=== PATIENT | female | born 1950 | race Caucasian/White ===

== ENCOUNTER 2018-04-19 07:41 | Inpatient (IN) ==
--- NOTE | 2018-04-19 08:44 | ED ---
HPI General Chief complaint: Altered Mental Status Stated complaint: Anxiety Time Seen by Provider: 04/19/18 08:25 Source: patient Mode of arrival: ambulatory Limitations: no limitations History of Present Illness HPI narrative: 68-year-old female complains of knots all over her body. Patient states that she has feeling of wires running to her body and not all over the body and feeling unwinding on and off for the past 2 years. Patient has been seen by local physician and advised to take duloxetine which she stopped taking it. Patient was recently put on Prozac. Patient has history of hypertension and on lisinopril. Patient denies any recent injury. Patient complained of aching headache in the back of the head. Patient denies any visual change. Patient denies any neck pain. Patient denies any chest pain or shortness of breath. Patient denies abdominal pain. Patient denies any focal weakness or numbness of the extremity. Patient has history hypertension and hyperlipidemia. Patient smokes marijuana. Patient states that she had alcoholic drink yesterday afternoon. Patient denies any history of alcohol abuse. Patient states that she only drinks alcohol once in a while. Patient denies any other illicit drug abuse. Related Data Home Medications Medication Instructions Recorded Confirmed fluoxetine [Prozac] 20 mg PO DAILY 04/19/18 04/19/18 lisinopril 40 mg PO DAILY 04/20/18 04/20/18 lorazepam [Ativan] 0.5 mg PO TID 04/20/18 04/20/18 Allergies Allergy/AdvReac Type Severity Reaction Status Date / Time No Known Allergies Allergy Uncoded 05/12/16 17:40 Review of Systems ROS: all other systems reviewed are negative REPLACED BY [facility] Medical History Medical History HTN (hypertension) (Acute) History of hysterectomy (Acute) Surgical History Surgical History History of rhinoplasty (Acute) Social History Social History Substance History: No History of Abuse Smoking Status: Former smoker How Often Do You Have a Drink Containing Alcohol: 4 or more times a week Recent Travel in [facility] within the Last 8 Weeks: No Recent Out of Country Travel within the Last 8 Weeks: No Substance Abuse Detail Marijuana: Substance Use Status: Active Route Used Substance Abuse: Inhalation Immunization History Tetanus Immunization: Unsure Exam Narrative Exam Narrative: GENERAL: Well-nourished, well-developed patient. SKIN: Focused skin assessment warm/dry. HEAD: Normocephalic. EYES: No scleral icterus. No injection or drainage. NECK: Supple, trachea midline. No JVD or lymphadenopathy. CARDIOVASCULAR: Regular rate and rhythm without murmurs, gallops, or rubs. RESPIRATORY: Breath sounds equal bilaterally. No accessory muscle use. GASTROINTESTINAL: Abdomen soft, non-tender, nondistended. MUSCULOSKELETAL: No cyanosis, or edema. BACK: Nontender without obvious deformity. No CVA tenderness. Neurologic exam normal. Course Initial Documented Vital Signs Temperature 97.7 F 04/19/18 07:47 Pulse Rate 66 04/19/18 07:47 Respiratory Rate 12 04/19/18 07:47 Blood Pressure 231/105 H 04/19/18 07:47 Pulse Oximetry 99 04/19/18 07:47 Last Documented Vital Signs Temperature 99.0 F 04/19/18 20:19 Pulse Rate 104 H 04/20/18 08:55 Respiratory Rate 18 04/20/18 08:55 Blood Pressure 170/96 H 04/20/18 08:55 Pulse Oximetry 96 04/20/18 06:12 Medical Decision Making MDM Narrative Medical decision making narrative: 68-year-old female with complaints of nausea all over the body and feeling unwinding of the body. Patient had alcohol drinks yesterday afternoon. 9:34 AM. Patient is medically cleared for psychiatric evaluation. Patient will be [place] acted. Patient was given 2 mg IV Ativan and Haldol 5 mg IM. Medical Screen Exam Complete: Yes Emergency Medical Condition: Yes Lab Data Lab results reviewed: Yes I reviewed the patient's lab results. Result diagrams: 04/19/18 08:43 04/19/18 08:43 Lab Results 04/19/18 04/19/18 04/19/18 Range/Units 08:40 08:40 08:43 WBC 8.5 (4.0-11.0) th/mm3 RBC 4.70 (4.00-5.30) mil/mm3 Hgb 14.8 (11.6-15.3) gm/dL Hct 43.5 (35.0-46.0) % MCV 92.7 (80.0-100.0) fL MCH 31.4 (27.0-34.0) pg MCHC 33.9 (32.0-36.0) % RDW 13.1 (11.6-17.2) % Plt Count 255 (150-450) th/mm3 MPV 9.1 (7.0-11.0) fL Neut % (Auto) 76.8 H (16.0-70.0) % Lymph % (Auto) 15.0 (9.0-44.0) % Canadian % (Auto) 4.5 (0.0-8.0) % Eos % (Auto) 2.8 (0.0-4.0) % Baso % (Auto) 0.9 (0.0-2.0) % Neut # (Auto) 6.5 (1.8-7.7) th/mm3 Lymph # (Auto) 1.3 (1.0-4.8) th/mm3 Canadian # (Auto) 0.4 (0.0-0.9) th/mm3 Eos # (Auto) 0.2 (0.0-0.4) th/mm3 Baso # (Auto) 0.1 (0.0-0.2) th/mm3 WBC Differential . Differential Comment Auto diff final Sodium (136-145) meq/L Potassium (3.5-5.1) meq/L Chloride (98-107) meq/L Carbon Dioxide (21.0-32.0) meq/L Anion Gap (5-15) meq/L BUN (7-18) mg/dL Creatinine (0.50-1.00) mg/dL Estimated GFR (>89) mL/min Random Glucose (74-106) mg/dL Calcium (8.5-10.1) mg/dL Total Bilirubin (0.2-1.0) mg/dL AST (15-37) U/L ALT (10-53) U/L Alkaline Phosphatase (45-117) U/L Total Protein (6.4-8.2) g/dL Albumin (3.4-5.0) g/dL Lipase (73-393) U/L TSH (0.358-3.740) uIU/mL Urine Color Straw (Yellw/Straw) Urine Clarity Hazy H (Clear) Urine pH 8.0 (5.0-8.5) Ur Specific [place] 1.008 (1.002-1.035) Urine Protein Negative (Neg-Trace) mg/dL Urine Glucose (UA) Negative (Negative) mg/dL Urine Ketones Negative (Negative) mg/dL Urine Occult Blood Negative (Negative) Urine Nitrate Negative (Negative) Urine Bilirubin Negative (Negative) Urine Urobilinogen Less than 2 (Less than 2) mg/dL Ur Leukocyte Esterase Negative (Negative) Urine RBC Less than 1 (0-3) /hpf Urine WBC Less than 1 (0-5) /hpf Ur Squamous Epith Cells 1 (0-5) /hpf Micro UA Comment Culture not ind Ur Microscopic Review Not Reportable Urine Culture Comments Culture not ind Urine Opiates Screen Neg (Neg) Ur Barbiturates Screen Neg (Neg) Ur Amphetamines Screen Neg (Neg) U Benzodiazepines Scrn Neg (Neg) Urine Cocaine Screen Neg (Neg) U Cannabinoids Screen Pos H (Neg) Serum Alcohol (0-5) mg/dL 04/19/18 Range/Units 08:43 WBC (4.0-11.0) th/mm3 RBC (4.00-5.30) mil/mm3 Hgb (11.6-15.3) gm/dL Hct (35.0-46.0) % MCV (80.0-100.0) fL MCH (27.0-34.0) pg MCHC (32.0-36.0) % RDW (11.6-17.2) % Plt Count (150-450) th/mm3 MPV (7.0-11.0) fL Neut % (Auto) (16.0-70.0) % Lymph % (Auto) (9.0-44.0) % Canadian % (Auto) (0.0-8.0) % Eos % (Auto) (0.0-4.0) % Baso % (Auto) (0.0-2.0) % Neut # (Auto) (1.8-7.7) th/mm3 Lymph # (Auto) (1.0-4.8) th/mm3 Canadian # (Auto) (0.0-0.9) th/mm3 Eos # (Auto) (0.0-0.4) th/mm3 Baso # (Auto) (0.0-0.2) th/mm3 WBC Differential Differential Comment Sodium 140 (136-145) meq/L Potassium 3.5 (3.5-5.1) meq/L Chloride 104 (98-107) meq/L Carbon Dioxide 24.7 (21.0-32.0) meq/L Anion Gap 11 (5-15) meq/L BUN 8 (7-18) mg/dL Creatinine 0.72 (0.50-1.00) mg/dL Estimated GFR 81 L (>89) mL/min Random Glucose 86 (74-106) mg/dL Calcium 9.1 (8.5-10.1) mg/dL Total Bilirubin 0.5 (0.2-1.0) mg/dL AST 29 (15-37) U/L ALT 44 (10-53) U/L Alkaline Phosphatase 77 (45-117) U/L Total Protein 8.1 (6.4-8.2) g/dL Albumin 4.3 (3.4-5.0) g/dL Lipase 205 (73-393) U/L TSH 2.350 (0.358-3.740) uIU/mL Urine Color (Yellw/Straw) Urine Clarity (Clear) Urine pH (5.0-8.5) Ur Specific Chester (1.002-1.035) Urine Protein (Neg-Trace) mg/dL Urine Glucose (UA) (Negative) mg/dL Urine Ketones (Negative) mg/dL Urine Occult Blood (Negative) Urine Nitrate (Negative) Urine Bilirubin (Negative) Urine Urobilinogen (Less than 2) mg/dL Ur Leukocyte Esterase (Negative) Urine RBC (0-3) /hpf Urine WBC (0-5) /hpf Ur Squamous Epith Cells (0-5) /hpf Micro UA Comment Ur Microscopic Review Urine Culture Comments Urine Opiates Screen (Neg) Ur Barbiturates Screen (Neg) Ur Amphetamines Screen (Neg) U Benzodiazepines Scrn (Neg) Urine Cocaine Screen (Neg) U Cannabinoids Screen (Neg) Serum Alcohol 98 H (0-5) mg/dL Imaging Data Attestation: I personally reviewed and interpreted this imaging study as follows : Radiologist's impression: Chest X-Ray 04/19/18 08:37 CONCLUSION: No acute cardiopulmonary disease. Discharge Plan Discharge Disposition Patient Disposition: 65 Disc To [facility] Facility Discharge Condition Condition: Stable Discharge Order Discharge Orders: Discharge Order (Routine); Ordered 04/20/18 Ordered By: Joyce Dow Discharge Details Diagnosis: Acute psychosis Physicians Team ED Provider: Alfredo Reyes Primary Care Provider: UNKNOWN, Rxs /Orders / Referrals /Forms Prescriptions: No Action fluoxetine [Prozac] 10 mg Capsule 20 mg PO DAILY RF: 0 lorazepam [Ativan] 0.5 mg Tablet 0.5 mg PO TID RF: 0 lisinopril 40 mg Tablet 40 mg PO DAILY RF: 0 Discharge Instructions Print Language: French Additional Instructions: Follow-up per psychiatrist recommendations. Discharge Interventions Interventions: Vital Signs Last Done: 04/20/18 08:55 Status ED Status: Ready for Discharge
[2018-04-19 08:54] LABS: Baso # (Auto) 0.1 th/mm3 (0.0-0.2); Baso % (Auto) 0.9 % (0.0-2.0); Eos # (Auto) 0.2 th/mm3 (0.0-0.4); Eos % (Auto) 2.8 % (0.0-4.0); Hematocrit 43.5 % (35.0-46.0); Hemoglobin 14.8 gm/dL (11.6-15.3); Lymph # (Auto) 1.3 th/mm3 (1.0-4.8); Mean Corpuscular HGB Conc 33.9 % (32.0-36.0); Mean Corpuscular Hemoglobin 31.4 pg (27.0-34.0); Mean Corpuscular Volume 92.7 fL (80.0-100.0); Mean Platelet Volume 9.1 fL (7.0-11.0); Mono # (Auto) 0.4 th/mm3 (0.0-0.9); Mono % (Auto) 4.5 % (0.0-8.0); Neut # (Auto) 6.5 th/mm3 (1.8-7.7); Neut % (Auto) 76.8 % (16.0-70.0); Platelet Count 255 th/mm3 (150-450); Red Cell Distribution Width 13.1 % (11.6-17.2); White Blood Count 8.5 th/mm3 (4.0-11.0)
--- NOTE | 2018-04-19 08:55 | XR ---
EXAM DATE: 04/19/2018 8:37 AM EDT AGE/SEX: 68 years / Female INDICATIONS: Chest pain and shortness of breath. CLINICAL DATA: This is the patient's initial encounter. Patient reports that signs and symptoms have been present for 1 day and indicates a pain score of 7/10. MEDICAL/SURGICAL HISTORY: Hypertension. None. COMPARISON: [facility], CHEST PA & LAT, 01/02/2012. . FINDINGS: The lungs are clear without infiltrate, nodule, or mass. There is no appreciable pleural effusion fo r technique. Heart and mediastinum are unremarkable. CONCLUSION: No acute cardiopulmonary disease. Electronically signed by: Genesis Galvez MD 04/19/2018 8:54 AM EDT
[2018-04-19 09:03] LABS: Bilirubin,Urine Negative (Negative); Clarity,Urine Hazy (Clear); Color,Urine Straw (Yellw/Straw); Glucose,Urine (UA) Negative (Negative); Leukocyte Esterase,Urine Negative (Negative); Nitrite,Urine Negative (Negative); Specific Gravity,Urine 1.008 (1.002-1.035); Squamous Epithelial Cell,Urine 1 /hpf (0-5)
[2018-04-19 09:06] LABS: Amphetamine Screen,Urine Neg (Neg); Barbiturate Screen,Urine Neg (Neg); Cannabinoid Screen,Urine Pos (Neg); Cocaine Screen,Urine Neg (Neg); Opiate Screen,Urine Neg (Neg)
[2018-04-19 09:10] LABS: Alanine Aminotransferase 44 U/L (10-53); Albumin 4.3 g/dL (3.4-5.0); Anion Gap 11 meq/L (5-15); Aspartate Aminotransferase 29 U/L (15-37); Blood Urea Nitrogen 8 mg/dL (7-18); Calcium 9.1 mg/dL (8.5-10.1); Carbon Dioxide 24.7 meq/L (21.0-32.0); Chloride 104 meq/L (98-107); Glomerular Filtration Rate 81 mL/min (>89); Glucose,Random 86 mg/dL (74-106); Lipase 205 U/L (73-393); Potassium 3.5 meq/L (3.5-5.1); Sodium 140 meq/L (136-145)
[2018-04-19 09:11] LABS: Alcohol 98 mg/dL (0-5)
[2018-04-19 09:20] LABS: Alkaline Phosphatase 77 U/L (45-117); Total Protein 8.1 g/dL (6.4-8.2)
[2018-04-19] MEDS ORDERED: Haloperidol Inj 5 MG/ML Ampul IM ONE (11:45)
[2018-04-19] MEDS ORDERED: Ibuprofen 600 MG Tablet PO ONE (17:03)
[2018-04-20] MEDS ORDERED: Lisinopril 20 MG Tablet PO ONE (10:44)
[2018-04-20] MEDS ORDERED: LORazepam 0.5 MG Tablet PO ONE (12:11)
--- NOTE | 2018-04-21 01:18 | ECG ---
Date Performed: 04/19/2018 Time Performed: 07:51:34 PTAGE: 68 years EKG: Sinus rhythm MILD ST DEPRESSION, POSSIBLE NON-SPECIFIC ABNORMAL ECG NO PREVIOUS TRACING DOCTOR: Leonides Dukes Interpretating Date/Time 04/21/2018 01:16:23
[2018-04-21] MEDS ORDERED: Aluminum/Magnesium/Simethacone Susp 30 ML UDC PO PRN (09:13)
[2018-04-21] MEDS ORDERED: Haloperidol Inj 5 MG/ML Ampul IV.PUSH PRN (09:13)
[2018-04-21] MEDS ORDERED: LORazepam 1 MG Tablet PO PRN (09:13)
[2018-04-21] MEDS ORDERED: Bisacodyl 10 MG Supp RECTAL PRN (09:13)
[2018-04-21] MEDS: Lisinopril 20 MG Tablet PO SCH (12:07)
[2018-04-21] MEDS: LORazepam 0.5 MG Tablet PO SCH ×2 (12:07→17:07)
[2018-04-21] MEDS: FLUoxetine 10 MG Capsule PO SCH (12:08)
--- NOTE | 2018-04-21 19:18 | P.CONIM ---
History of Present Illness Service: [facility] Consult date: 04/21/18 Requesting Physician: Kevin Rice Reason for Consult: ?Seizure Primary Care Provider: UNKNOWN History of Present Illness: Stat Consult: I was called to evaluate the patient. 68-year-old female with a medical history significant hypertension admitted to the psychiatric unit under [place] act. Patient reportedly feels wires running throughout her body. While in the psychiatric unit, the patient was witnessed to have a seizure episode described as her eyes rolling back with violent shaking. She regained awareness within 5 minutes. The patient was transferred to the med psych unit. On my evaluation, the patient is a poor historian but is alert and oriented. Her is at bedside. She reports a strong history of alcohol abuse but reports that she quit 4 years ago but then admitted that she drank a few days ago for her birthday. She could not quantify the amount. at bedside reports that she drank occasionally but said he drinks too much himself and at times noted he does not really know how much she drinks. There has been reported issues with psychiatric medications noncompliance. The patient was given Ativan and she appears to be calm currently. Review of Systems All other systems reviewed negative except as stated in HPI PMFSH - History History Provided By: Patient, Dulser / EMT - Medical History Medical History: Medical History (Last Reviewed 04/21/18 @ 19:10 by Marianna Perez MD) HTN (hypertension) History of hysterectomy - Surgical History Surgical History: Surgical History (Last Reviewed 04/21/18 @ 19:10 by Marianna Perez MD) History of rhinoplasty - Social History I have reviewed the patient's Social History: Yes - Tobacco History Second Hand Smoke Exposure: No Smoking Status: Former smoker - Alcohol History How Often Do You Have a Drink Containing Alcohol: 4 or more times a week - Substance Use History Substance History: No History of Abuse - Substance Use Type Marijuana Status: Active Route Used: Inhalation - Travel History Recent Travel in the [place] Within the Last 8 Weeks: No Recent Travel Out of the Country Within the Last 8 Weeks: No - Immunization History Tetanus Immunization: Unsure Medications and Allergies Active Medications: Active Medications Al Hydrox/Mg Hydrox/Simethicone (Mag-Al Plus Susp Liq) 30 ml PO Q6H PRN PRN Reason: DYSPEPSIA Al Hydroxide/Mg Hydroxide (Milk Of Magnesia Liq) 30 ml PO Q12H PRN PRN Reason: Mild Constipation Bisacodyl (Dulcolax Supp) 10 mg RECTAL DAILY PRN PRN Reason: SEVERE CONSITIPATION Flumazenil (Romazecon Inj) 0.2 mg IV.PUSH Q1M PRN PRN Reason: OVERSEDATION Fluoxetine HCl (Prozac) 20 mg PO DAILY [facility] Last Admin: 04/21/18 12:08 Dose: Not Given Haloperidol Lactate (Haldol Inj) 1 mg IV.PUSH Q15M PRN PRN Reason: for severe agitation Lactulose (Lactulose Liq) 30 ml PO DAILY PRN PRN Reason: SEVERE CONSITIPATION Lisinopril (Prinivil) 40 mg PO DAILY [facility] Last Admin: 04/21/18 12:07 Dose: 40 mg Lorazepam (Ativan) 0.5 mg PO TID [facility] Last Admin: 04/21/18 17:07 Dose: 0.5 mg Lorazepam (Ativan) 1 mg PO Q4H PRN PRN Reason: for CIWA 8-10 Lorazepam (Ativan) 2 mg PO Q2H PRN PRN Reason: for CIWA 11-14 Lorazepam (Ativan Inj) 2 mg IV.PUSH Q1H PRN PRN Reason: for CIWA 15-20 Lorazepam (Ativan Inj) 2 mg IV.PUSH Q15M PRN PRN Reason: for CIWA > 20 Lorazepam (Ativan Inj) 1 mg IV.PUSH Q4H PRN PRN Reason: for CIWA 8-10 Lorazepam (Ativan Inj) 2 mg IV.PUSH Q2H PRN PRN Reason: for CIWA 11-14 Senna/Docusate Sodium (Criselda-Colace) 1 tab PO BID [facility] Sennosides (Senokot) 17.2 mg PO Q12H PRN PRN Reason: Moderate Constipation Allergies Allergy/AdvReac Type Severity Reaction Status Date / Time No Known Allergies Allergy Uncoded 05/12/16 17:40 Home Medications Medication Instructions Recorded Confirmed Type fluoxetine [Prozac] 20 mg PO DAILY 04/19/18 04/19/18 History lisinopril 40 mg PO DAILY 04/20/18 04/20/18 History lorazepam [Ativan] 0.5 mg PO TID 04/20/18 04/20/18 History Exam Vital signs: Vital Signs 04/20/18 23:50 04/21/18 06:27 04/21/18 07:40 Temperature 98.4 F Pulse Rate 75 80 81 Respiratory Rate 16 14 16 Blood Pressure 120/64 174/97 H 152/86 H Pulse Oximetry 97 98 99 04/21/18 12:00 Temperature 97.7 F Pulse Rate 98 H Respiratory Rate 16 Blood Pressure 137/84 Pulse Oximetry 99 Narrative: GENERAL: This is a well-nourished, well-developed patient, in no apparent distress. CARDIOVASCULAR: Normal rate and regular rhythm without murmurs, gallops, or rubs. RESPIRATORY: Good respiratory efforts. Breath sounds equal and clear to auscultation bilaterally. GASTROINTESTINAL: Abdomen soft, non-tender, non-distended. Normal active bowel sounds MUSCULOSKELETAL: Extremities without cyanosis, or edema. NEURO: Alert & Oriented x4 to person, place, time, situation. Moves all ext x4. Mild tremors. PSYCH: Appropriate mood and affect. Results - Labs CBC & Chem 7: 04/19/18 08:43 04/19/18 08:43 Labs: Laboratory Results - last 24 hr 04/21/18 17:27 POC Glucose 129 H Assessment and Plan - Plan 68-year-old female admitted to the psychiatric unit under [place] act. Patient had a reported seizure. Seizure: Most likely alcohol withdrawal seizure. Last drink 2 days ago. -No focal deficits on exam. -Advised continuing [facility] protocol. -Ativan as needed. Obtain EEG -Hold off on further workup or anticonvulsive at this point. If she were to have another seizure, would obtain imaging and consult neurology - Continue to monitor Alcohol dependence: The patient was counseled. Both the patient and her minimize her alcohol use but the story was grossly inconsistent and she finally admitted that she had multiple glasses of vodka a couple of days ago. The admits that he drinks too much. - Counseled the patient and her at bedside regarding the detrimental effects of alcohol. -Add B12, folate, multivitamin. Psychiatric conditions to be managed by psychiatry. Hypertension: Continue home dose lisinopril. Discussed Condition With: Dr. Camarillo
[2018-04-21] MEDS: Senna/Docusate Sodium 8.6/50 MG Tablet PO SCH (20:55)
[2018-04-21] MEDS ORDERED: Acetaminophen 325 MG Tablet PO PRN (22:32)
[2018-04-22] MEDS: Lisinopril 20 MG Tablet PO SCH (09:28)
[2018-04-22] MEDS: LORazepam 0.5 MG Tablet PO SCH ×3 (09:29→18:23)
[2018-04-22] MEDS: Senna/Docusate Sodium 8.6/50 MG Tablet PO SCH ×2 (09:29→21:25)
[2018-04-22] MEDS: Folic Acid 1 MG Tablet PO SCH (09:29)
[2018-04-22] MEDS: FLUoxetine 10 MG Capsule PO SCH (09:29)
[2018-04-22 09:55] LABS: Calcium 9.6 mg/dL (8.5-10.1); Carbon Dioxide 27.3 meq/L (21.0-32.0); Chol/HDL Ratio 1.78 Ratio; HDL Cholesterol 95.5 mg/dL (40.0-60.0); Potassium 3.4 meq/L (3.5-5.1)
--- NOTE | 2018-04-22 14:27 | P.PNIM ---
Subjective Interval history: Follow-up seizure activity, hypertension, alcohol dependence, anxiety, depression. Patient seen and examined sitting in the chair, denies any headache or dizziness, denies any pain, chest pain or shortness of breath. Patient denies any abdominal pain, nausea, vomiting, diarrhea or constipation. Patient stated that she is doing well. Nurse reported no acute concerns. Physical Exam Vital signs: Vital Signs 04/22/18 05:16 Temperature 98.3 F Pulse Rate 76 Respiratory Rate 16 Blood Pressure 118/74 Pulse Oximetry 97 Intake & Output 04/21/18 04/22/18 04/22/18 18:59 06:59 18:59 Intake Total 2400 / 2400 Balance 2400 / 2400 Intake: Oral 2400 / 2400 Other: # Voids 2 # Bowel Movements 1 Narrative: GENERAL: Well-developed, well-nourished, elderly female, sitting in the chair in no apparent distress SKIN: Warm and dry. HEAD: Atraumatic. Normocephalic. EYES: Pupils equal and round. No scleral icterus. No injection or drainage. ENT: No nasal bleeding or discharge. Mucous membranes pink and moist. NECK: Trachea midline. No JVD. CARDIOVASCULAR: Regular rate and rhythm. RESPIRATORY: No accessory muscle use. Clear to auscultation. Breath sounds equal bilaterally. GASTROINTESTINAL: Abdomen soft, non-tender, nondistended. Hepatic and splenic margins not palpable. MUSCULOSKELETAL: Extremities without clubbing, cyanosis, or edema. No obvious deformities. NEUROLOGICAL: Awake and alert x3. Mild tremors noted. Motor grossly within normal limits. Moving all 4 extremities. Normal speech. PSYCHIATRIC: Appropriate mood and affect; insight and judgment poor Results - Labs CBC & Chem 7: 04/19/18 08:43 04/22/18 08:31 Laboratory Results - last 24 hr 04/21/18 04/22/18 17:27 08:31 Sodium 130 L Potassium 3.4 L Chloride 92 L Carbon Dioxide 27.3 Anion Gap 11 BUN 13 Creatinine 0.85 Estimated GFR 67 L POC Glucose 129 H Random Glucose 74 Calcium 9.6 Triglycerides 65 Cholesterol 170 LDL Cholesterol, Calc 62 HDL Cholesterol 95.5 H Cholesterol/HDL Ratio 1.78 Assessment and Plan - Assessment (1) Witnessed seizure-like activity Status: Acute (2) Alcohol abuse Code(s): F10.10 - Alcohol abuse, uncomplicated Status: Acute (3) Substance induced mood disorder Code(s): F19.94 - Other psychoactive substance use, unspecified with psychoactive substance-induced mood disorder Status: Acute (4) Hypokalemia Code(s): E87.6 - Hypokalemia Status: Acute (5) Hyponatremia Code(s): E87.1 - Hypo-osmolality and hyponatremia Status: Acute (6) Hypertension Code(s): I10 - Essential (primary) hypertension Status: Acute (7) Anxiety Code(s): F41.9 - Anxiety disorder, unspecified Status: Acute (8) Depression Code(s): F32.9 - Major depressive disorder, single episode, unspecified Status : Acute - Plan Tis is a 68-year-old female admitted to the psychiatric unit under [place] act. Patient had a reported seizure. Seizure Most likely alcohol withdrawal seizure. last drink 2 days ago. -No focal deficits on exam. -Advised continuing CIWA protocol. -Ativan as needed. Obtain EEG -Hold off on further workup or anticonvulsive at this point. If she were to have another seizure, would obtain imaging and consult neurology - Continue to monitor Hypokalemia/hyponatremia -Likely related to medication adverse reaction with antipsychotic medication/ Haldol -replaced with KCL -monitor BMP Alcohol dependence Reported that both the patient and her minimize her alcohol use but the story was grossly inconsistent and she finally admitted that she had multiple glasses of vodka a couple of days ago. The admits that he drinks too much. Family previously counseled on the detrimental effects of alcohol. -Reinforced counseling on EtOH -Add B12, folate, multivitamin. Hypertension, uncontrolled -improving, better today, 118/74, 117/61 -Continue home dose lisinopril -monitor BP Anxiety/depression/psychiatric conditions -Managed by psychiatry DVT Prophylaxis: increase ambulation Code Status: Full code Discussed Condition With: Patient and nurse
--- NOTE | 2018-04-22 14:57 | P.PN ---
Subjective Interval history: NOT SEEN Physical Exam Vital signs: Vital Signs 04/22/18 05:16 Temperature 98.3 F Pulse Rate 76 Respiratory Rate 16 Blood Pressure 118/74 Pulse Oximetry 97 Intake & Output 04/21/18 04/22/18 04/22/18 18:59 06:59 18:59 Intake Total 2400 / 2400 Balance 2400 / 2400 Intake: Oral 2400 / 2400 Other: # Voids 2 # Bowel Movements 1 Narrative: GENERAL: Well-developed, well-nourished, elderly female, sitting in the chair in no apparent distress SKIN: Warm and dry. CARDIOVASCULAR: Regular rate and rhythm. RESPIRATORY: No accessory muscle use. Clear to auscultation. Breath sounds equal bilaterally. GASTROINTESTINAL: Abdomen soft, non-tender, nondistended. MUSCULOSKELETAL: Extremities without clubbing, cyanosis, or edema. No obvious deformities. NEUROLOGICAL: Awake and alert x3. Mild tremors noted. Motor grossly within normal limits. Moving all 4 extremities. Normal speech. PSYCHIATRIC: Appropriate mood and affect; insight and judgment poor Results - Labs CBC & Chem 7: 04/19/18 08:43 04/22/18 08:31 Laboratory Results - last 24 hr 04/21/18 04/22/18 17:27 08:31 Sodium 130 L Potassium 3.4 L Chloride 92 L Carbon Dioxide 27.3 Anion Gap 11 BUN 13 Creatinine 0.85 Estimated GFR 67 L POC Glucose 129 H Random Glucose 74 Calcium 9.6 Triglycerides 65 Cholesterol 170 LDL Cholesterol, Calc 62 HDL Cholesterol 95.5 H Cholesterol/HDL Ratio 1.78 - Imaging ITS Impressions Chest X-Ray 04/19/18 08:37 CONCLUSION: No acute cardiopulmonary disease. Assessment and Plan - Plan This is a 68-year-old female admitted to the psychiatric unit under [place] act. Patient had a reported seizure. Seizure Most likely alcohol withdrawal seizure. Last drink 2 days ago. -No focal deficits on exam. -Advised continuing [facility] protocol. -Ativan as needed. Obtain EEG -Hold off on further workup or anticonvulsive at this point. If she were to have another seizure, would obtain imaging and consult neurology -Continue to monitor, sz precautions Hypokalemia -slightly low -replaced with KCL -monitor BMP Alcohol dependence: The patient was counseled. Both the patient and her minimize her alcohol use but the story was grossly inconsistent and she finally admitted that she had multiple glasses of vodka a couple of days ago. -Counseled the patient and her at bedside regarding the detrimental effects of alcohol. -Ct B12, folate, multivitamin. Hypertension, uncontrolled -improving -Continue home dose lisinopril -monitor BP Psychiatric conditions -Managed by psychiatry DVT Prophylaxis: increase ambulation
[2018-04-22 16:39] LABS: Hemoglobin A1c 5.3 % (4.3-6.0)
--- NOTE | 2018-04-22 19:36 | P.HPPSY ---
Provisional Diagnosis Admission Date: April 21, 2018 09:15 Competence Certification of Person's Competence To Provide Express and Informed Consent I have personally examined Ania Berger, a person being served at [facility] on, April 22, 2018 Etienne. Express and informed consent means consent voluntarily given in writing, by a competent person, after sufficient explanation and disclosure of the subject matter involved to enable the person to make a knowing and willful decision without any element of force, fraud, deceit, duress, or other form of constraint or coercion. This person is 18 years of age or older, is not now known to be incompetent to consent to treatment with a guardian advocate, and does not have a health care surrogate or proxy currently making medical treatment decisions. I have found this person to be one of the following: [] Competent to provide express and informed consent, as defined above, for voluntary admission to this facility and is competent to provide express and informed consent for treatment. He/she has the consistent capacity to make well reasoned, willful, and knowing decisions concerning his or her medical or mental health treatment. The person fully and consistently understands the purpose of the admission for examination/placement and is fully capable of personally exercising all rights assured under [place] [] Incompetent to provide express and informed consent to voluntary admission, and this is incompetent to provide express and informed consent to treatment. The person must be transferred to involuntary status and a petition for a guardian advocate filed with the Circuit Court. [X] Refusing to provide express and informed consent to voluntary admission but is competent to provide express and informed consent for treatment. The person must be discharged or transferred to involuntary status. Form shall be completed within 24 hours of a person's arrival at the receiving facility and filed in the clinical record of each person: 1. Admitted on a voluntary basis 2. Permitted to provide express and informed consent to his/her own treatment 3. Allowed to transfer from involuntary to voluntary status 4. Prior to permitting a person to consent to his or her own treatment after having been previously found incompetent to consent to treatment. History of Present Illness Capacity: Has capacity Chief Complaint: see below History of Present Illness: Patient is a 68-year-old female without a stated psychiatric history. She was seen today with her . Patient was initially in psychiatric unit but then had a seizure and was transferred to the medical/psychiatric unit. Patient is disheveled and quite guarded and evasive during the interview. She required frequent prompting from myself and . Patient says she used to have alcohol dependence but quit drinking 4 years ago which has been confirmed. She had 3 drinks before admission yesterday. Today ciwa is 3. Patient also was taking Ativan 0.5 mg p.o. twice daily. Patient has a bizarre delusion where she feels that her body is being stretched apart and there are nodules throughout her body. She has been picking at these nodules excessively. Insight is quite poor concerning her recent behavior. She does deny suicidal or homicidal ideation intent or plan. Past psych: Patient denies inpatient or outpatient history. However, chart notes a history of Prozac. Past medical: See chart Past Famhx: Denies Past Social: History of alcohol dependence, she quit drinking 4 years ago. She is . - Inpatient Certification I certify that the inpatient services were ordered in accordance with Medicare regulations governing the order. This includes certification that hospital inpatient services are reasonable and necessary and in the case of services not specified as inpatient-only under 42 CFR 419.22(n), that they are appropriately provided as inpatient services in accordance to with the 2-midnight benchmark under 43 CFR 412.3(e) I certify that inpatient psychiatric hospital services are medically necessary. Evaluation and treatment and/or diagnostic testing are expected to improve the patient's condition. The patient needs on a daily basis, active treatment furnished directly by or requiring the supervision of inpatient psychiatric facility personnel. Estimated Total Length of Stay (Days): 7 Plans for Post Hospital Care: Home [facility] - History History Provided By: Patient, Animal Pathologist / EMT - Medical History Medical History: Medical History (Last Reviewed 04/22/18 @ 19:34 by Mono Mckay DO) HTN (hypertension) History of hysterectomy - Surgical History Surgical History: Surgical History (Last Reviewed 04/22/18 @ 19:34 by Mono Mckay DO) History of rhinoplasty - Tobacco History Second Hand Smoke Exposure: No Smoking Status: Former smoker - Alcohol History How Often Do You Have a Drink Containing Alcohol: 4 or more times a week - Substance Use History Substance History: No History of Abuse - Substance Use Type Marijuana Status: Active Route Used: Inhalation - Travel History Recent Travel in the [facility] Within the Last 8 Weeks: No Recent Travel Out of the Country Within the Last 8 Weeks: No - Immunization History Tetanus Immunization: Unsure Medications and Allergies Active Medications: Active Medications Acetaminophen (Tylenol) 650 mg PO Q6H PRN PRN Reason: PAIN 1-5 OR TEMP > 101 Last Admin: 04/22/18 00:03 Dose: 650 mg Al Hydrox/Mg Hydrox/Simethicone (Mag-Al Plus Susp Liq) 30 ml PO Q6H PRN PRN Reason: DYSPEPSIA Al Hydroxide/Mg Hydroxide (Milk Of Magnesia Liq) 30 ml PO Q12H PRN PRN Reason: Mild Constipation Bisacodyl (Dulcolax Supp) 10 mg RECTAL DAILY PRN PRN Reason: SEVERE CONSITIPATION Flumazenil (Romazecon Inj) 0.2 mg IV.PUSH Q1M PRN PRN Reason: OVERSEDATION Fluoxetine HCl (Prozac) 20 mg PO DAILY [facility] Last Admin: 04/22/18 09:29 Dose: Not Given Folic Acid (Folic Acid) 1 mg PO DAILY [facility] Last Admin: 04/22/18 09:29 Dose: 1 mg Haloperidol Lactate (Haldol Inj) 1 mg IV.PUSH Q15M PRN PRN Reason: for severe agitation Lactulose (Lactulose Liq) 30 ml PO DAILY PRN PRN Reason: SEVERE CONSITIPATION Lisinopril (Prinivil) 40 mg PO DAILY [facility] Last Admin: 04/22/18 09:28 Dose: 40 mg Lorazepam (Ativan) 0.5 mg PO TID [facility] Last Admin: 04/22/18 18:23 Dose: 0.5 mg Lorazepam (Ativan) 1 mg PO Q4H PRN PRN Reason: for CIWA 8-10 Lorazepam (Ativan) 2 mg PO Q2H PRN PRN Reason: for CIWA 11-14 Lorazepam (Ativan Inj) 2 mg IV.PUSH Q1H PRN PRN Reason: for CIWA 15-20 Lorazepam (Ativan Inj) 2 mg IV.PUSH Q15M PRN PRN Reason: for CIWA > 20 Lorazepam (Ativan Inj) 1 mg IV.PUSH Q4H PRN PRN Reason: for CIWA 8-10 Lorazepam (Ativan Inj) 2 mg IV.PUSH Q2H PRN PRN Reason: for CIWA 11-14 Multivitamins (Theragran) 1 tab PO DAILY [facility] Last Admin: 04/22/18 09:29 Dose: 1 tab Senna/Docusate Sodium (Criselda-Colace) 1 tab PO BID [facility] Last Admin: 04/22/18 09:29 Dose: 1 tab Sennosides (Senokot) 17.2 mg PO Q12H PRN PRN Reason: Moderate Constipation Thiamine HCl (Vitamin B1) 100 mg PO BID [facility] Last Admin: 04/22/18 09:30 Dose: 100 mg Allergies Allergy/AdvReac Type Severity Reaction Status Date / Time No Known Allergies Allergy Uncoded 05/12/16 17:40 Home Medications Medication Instructions Recorded Confirmed Type fluoxetine [Prozac] 20 mg PO DAILY 04/19/18 04/19/18 History lisinopril 40 mg PO DAILY 04/20/18 04/20/18 History lorazepam [Ativan] 0.5 mg PO TID 04/20/18 04/20/18 History Results - Labs CBC & Chem 7: 04/19/18 08:43 04/22/18 08:31 Labs: Laboratory Results - last 24 hr 04/22/18 08:31 Sodium 130 L Potassium 3.4 L Chloride 92 L Carbon Dioxide 27.3 Anion Gap 11 BUN 13 Creatinine 0.85 Estimated GFR 67 L Random Glucose 74 Calcium 9.6 Triglycerides 65 Cholesterol 170 LDL Cholesterol, Calc 62 HDL Cholesterol 95.5 H Cholesterol/HDL Ratio 1.78 Exam Vital signs: Vital Signs 04/22/18 05:16 04/22/18 08:00 04/22/18 17:48 Temperature 98.3 F 98.9 F Pulse Rate 76 75 Respiratory Rate 16 16 17 Blood Pressure 118/74 117/61 Pulse Oximetry 97 98 Intake & Output 04/22/18 04/22/18 04/23/18 06:59 18:59 06:59 Intake Total 3360 / 3360 Balance 3360 / 3360 Intake: Oral 3360 / 3360 Other: # Voids 2 # Bowel Movements 1 Mental Status Examination Appearance: Appropriate, Other Orientation: x4 Motor Activity: Normal gait Speech: Unremarkable Language: Adequate Fund of Knowledge: Inadequate Attention and Concentration: Adequate Memory: Unremarkable Mood: Appropriate Affect: Other (Evasive) Thought Process & Associations: Circumstantial Thought Content: Preoccupations, Delusional Delusion Type: Other (Bizarre somatic delusions.) Suicidal Ideation: No Suicidal Intention: No Homicidal Ideation: No Homicidal Plan: No Homicidal Intention: No Insight: Poor Judgment: Poor Assessment and Plan - Assessment (1) Unspecified psychosis not due to a substance or known physiological condition Code(s): F29 - Unspecified psychosis not due to a substance or known physiological condition Status: Acute - Plan Plan: Estimated LOS: [] days Patient is involuntary for admission but voluntary for medications. She does give consent to start Seroquel 50 mg p.o. nightly. Patient refuses Benadryl. Apply lotion as needed Justification for Continued Inpatient Stay: Patient would decompensate in a less restrictive setting
[2018-04-22] MEDS ORDERED: Aluminum/Magnesium/Simethacone Susp 30 ML UDC PO PRN (19:37)
[2018-04-22] MEDS: QUEtiapine 25 MG Tablet PO SCH (21:25)
[2018-04-23 07:38] LABS: Calcium 9.5 mg/dL (8.5-10.1); Carbon Dioxide 31.7 meq/L (21.0-32.0); Magnesium 2.3 mg/dL (1.5-2.5); Potassium 3.7 meq/L (3.5-5.1)
[2018-04-23 07:40] LABS: Chol/HDL Ratio 2.21 Ratio; HDL Cholesterol 86.3 mg/dL (40.0-60.0)
[2018-04-23 07:56] LABS: CKMB Percent 2.9 % (0.0-4.0); Creatine Kinase MB 6.8 ng/mL (0.5-3.6)
[2018-04-23] MEDS: Folic Acid 1 MG Tablet PO SCH (08:16)
[2018-04-23] MEDS: Senna/Docusate Sodium 8.6/50 MG Tablet PO SCH ×2 (08:16→20:33)
[2018-04-23] MEDS: Lisinopril 20 MG Tablet PO SCH (08:16)
[2018-04-23] MEDS: FLUoxetine 10 MG Capsule PO SCH (08:17)
[2018-04-23] MEDS: LORazepam 0.5 MG Tablet PO SCH ×3 (08:17→17:41)
--- NOTE | 2018-04-23 09:39 | MB ---
cc: Edilberto Alarcon MD DATE: 04/23/2018 EEG# [id number] INDICATION: Bumps all over body, wires running to her body. MEDICATIONS: Thiamine, Tylenol. DESCRIPTION: Recording shows symmetric diffuse alpha and beta rhythms. No hemisphere asymmetry is noted. No epileptiform or seizure activities is seen. A lot of eye movement artifact is noted. Photic stimulation is performed without significant posterior driving. IMPRESSION: A normal EEG. There is some beta rhythm seen which could be a slight medication effect, otherwise unremarkable. No seizure activity is seen. Edilberto Alarcon MD DJJosephine/gadiel , 08:44 AM , 08:48 AM
--- NOTE | 2018-04-23 10:19 | P.PN ---
Subjective Interval history: Nursing denies any deterioration since last night. Patient herself seems to be in pleasant spirits. Physical Exam Vital signs: Vital Signs 04/22/18 17:48 04/23/18 05:47 Temperature 98.9 F 98.6 F Pulse Rate 75 67 Respiratory Rate 17 16 Blood Pressure 117/61 124/75 Pulse Oximetry 98 97 Intake & Output 04/22/18 04/23/18 04/23/18 18:59 06:59 18:59 Intake Total 3360 / 3360 0 / 0 Balance 3360 / 3360 0 / 0 Intake: Oral 3360 / 3360 0 / 0 Other: # Voids 0 Narrative: Clear lungs bilaterally unlabored breathing Heart sounds regular rate rhythm, no murmurs Pleasant demeanor Awake and alert, no acute distress Results - Labs CBC & Chem 7: 04/19/18 08:43 04/23/18 06:45 Laboratory Results - last 24 hr 04/22/18 04/23/18 08:31 06:45 Sodium 135 L Potassium 3.7 Chloride 97 L Carbon Dioxide 31.7 Anion Gap 6 BUN 16 Creatinine 0.79 Estimated GFR 72 L Random Glucose 84 Hemoglobin A1c 5.3 Calcium 9.5 Magnesium 2.3 Total Creatine Kinase 231 H CK-MB (CK-2) 6.8 H CK-MB (CK-2) % 2.9 Triglycerides 64 Cholesterol 191 LDL Cholesterol, Calc 92 HDL Cholesterol 86.3 H Cholesterol/HDL Ratio 2.21 Assessment and Plan - Plan This is a 68-year-old female admitted to the psychiatric unit under [place] act. Patient had a reported seizure. Has been seizure-free for the last 2 days Seizure Most likely alcohol withdrawal seizure. Last drink 2 days ago. -No focal deficits on exam. - CIWA protocol. -Ativan as needed. EEG has not been obtained at this point. Will order -Hold off on further workup or anticonvulsive at this point. If she were to have another seizure, would obtain imaging and consult neurology - sz precautions Hypokalemia -resolved, likely 2/2 ETOH use Alcohol dependence: The patient was counseled. Both the patient and her minimize her alcohol use but the story was grossly inconsistent and she finally admitted that she had multiple glasses of vodka a couple of days ago. -Counseled the patient and her at bedside regarding the detrimental effects of alcohol. -Ct B12, folate, multivitamin. Hypertension -Stable with lisinopril Psychiatric conditions -Managed by psychiatry DVT Prophylaxis: ambulation
[2018-04-23 13:44] LABS: Hemoglobin A1c 5.2 % (4.3-6.0)
--- NOTE | 2018-04-23 16:31 | P.PNPSY ---
Subjective Chief Complaint: see below Remarks: Patient was seen and case discussed with nursing. Today patient is very rude and entitled. Nursing says she does not actively talk about her somatic delusions. However when I brought them up, patient became demanding and insisted they are real with various bizarre explanations. She did tolerate the Seroquel well and says she slept well with the first time in quite a while. There appears to be no consents for Prozac Mental Status Examination Appearance: Appropriate, Other Orientation: x4 Motor Activity: Normal gait Speech: Unremarkable Language: Adequate Fund of Knowledge: Inadequate Attention and Concentration: Adequate Memory: Unremarkable Mood: Angry, Irritable Affect: Other (Evasive) Thought Process & Associations: Circumstantial Thought Content: Preoccupations, Delusional Delusion Type: Other (Bizarre somatic delusions.) Suicidal Ideation: No Suicidal Intention: No Homicidal Ideation: No Homicidal Plan: No Homicidal Intention: No Insight: Poor Judgment: Poor Assessment and Plan - Assessment (1) Unspecified psychosis not due to a substance or known physiological condition Code(s): F29 - Unspecified psychosis not due to a substance or known physiological condition Status: Acute - Plan Plan: Continue current treatment plan Justification for Continued Inpatient Stay: Patient would decompensate in a less restrictive setting
[2018-04-23] MEDS: QUEtiapine 25 MG Tablet PO SCH (20:33)
[2018-04-24] MEDS: Folic Acid 1 MG Tablet PO SCH (08:23)
[2018-04-24] MEDS: Lisinopril 20 MG Tablet PO SCH (08:23)
[2018-04-24] MEDS: Senna/Docusate Sodium 8.6/50 MG Tablet PO SCH ×2 (08:24→20:28)
[2018-04-24] MEDS: LORazepam 0.5 MG Tablet PO SCH ×3 (08:24→18:24)
--- NOTE | 2018-04-24 11:13 | P.PNPSY ---
Subjective Chief Complaint: see below Remarks: Patient is initially pleasant but becomes rather defensive and irritable. She remains fixated on nodules in her how they are being transmitted throughout her body and describing them as electrical wires. Psychoeducation was done concerning Seroquel and a request was made from her for a higher dose however patient gets angry and scruples up the paper. Responding to internal stimuli throughout the day Mental Status Examination Appearance: Appropriate, Other Orientation: x4 Motor Activity: Normal gait Speech: Unremarkable Language: Adequate Fund of Knowledge: Inadequate Attention and Concentration: Adequate Memory: Unremarkable Mood: Angry, Irritable Affect: Other (Evasive) Thought Process & Associations: Circumstantial Thought Content: Preoccupations, Delusional Delusion Type: Bizarre, Other (Bizarre somatic delusions.) Suicidal Ideation: No Suicidal Intention: No Homicidal Ideation: No Homicidal Plan: No Homicidal Intention: No Insight: Poor Judgment: Poor Assessment and Plan - Assessment (1) Unspecified psychosis not due to a substance or known physiological condition Code(s): F29 - Unspecified psychosis not due to a substance or known physiological condition Status: Acute - Plan Plan: Consider making patient involuntary to initiate higher doses of antipsychotic Justification for Continued Inpatient Stay: Patient would decompensate in a less restrictive setting
--- NOTE | 2018-04-24 14:10 | P.PN ---
Subjective Interval history: Nursing denies any deterioration since last night. Patient is seen ambulating around the hallway. She appears to be in good spirits. Physical Exam Vital signs: Vital Signs 04/23/18 19:22 04/24/18 06:07 Temperature 98.6 F 97.6 F Pulse Rate 86 80 Respiratory Rate 16 18 Blood Pressure 120/68 101/62 Pulse Oximetry 96 97 Intake & Output 04/23/18 04/24/18 04/24/18 18:59 06:59 18:59 Intake Total 860 / 860 240 / 240 Balance 860 / 860 240 / 240 Intake: Oral 860 / 860 240 / 240 Other: # Voids 3 3 Narrative: Ambulating down the hallway Awake and alert Interactive, pleasant demeanor Clear lungs bilaterally, unlabored breathing Results - Labs CBC & Chem 7: 04/19/18 08:43 04/23/18 06:45 Laboratory Results - last 24 hr 04/23/18 06:45 Hemoglobin A1c 5.2 Microbiology 04/23/18 06:45 Blood - Peripheral Aerobic Blood Culture - Preliminary No growth in 1 day 04/23/18 06:45 Blood - Peripheral Anaerobic Blood Culture - Preliminary No growth in 1 day 04/23/18 06:40 Blood - Peripheral Aerobic Blood Culture - Preliminary No growth in 1 day 04/23/18 06:40 Blood - Peripheral Anaerobic Blood Culture - Preliminary No growth in 1 day Assessment and Plan - Plan This is a 68-year-old female admitted to the psychiatric unit under [place]. Patient had a reported seizure. Has been seizure-free for the at least the last 3 days. Hypokalemia was evident, likely secondary to alcoholic based malabsorption, resolved. Possible seizure Most likely alcohol withdrawal seizure. -No focal deficits on exam. - CIWA protocol. -Ativan as needed. EEG unremarkable per RN per Dr. Alarcon -Hold off on further workup or anticonvulsive at this point. If she were to have another seizure, would obtain imaging and consult neurology - sz precautions Alcohol dependence: The patient was counseled. Both the patient and her minimize her alcohol use but the story was grossly inconsistent and she finally admitted that she had multiple glasses of vodka a couple of days ago. -Counseled the patient and her at bedside regarding the detrimental effects of alcohol. -Ct B12, folate, multivitamin. Hypertension -Stable with lisinopril Psychiatric conditions -Managed by psychiatry DVT Prophylaxis: ambulation
--- NOTE | 2018-04-24 19:05 | MG ---
cc: Edilberto Alarcon MD INDICATIONS: A 68-year-old woman with bumps all over her body. Marijuana use, Tylenol, thiamine. FINDINGS: Recording shows diffuse beta rhythms and some alpha rhythms. There is no hemisphere asymmetry. No epileptiform or seizure activity is noted. No focal abnormalities are noted. A head twitch was seen, which did not correlate with any seizure activity, nor did the left foot twitch. Photic stimulation performed without significant posterior driving. IMPRESSION: Normal awake EEG. No evidence for a focal or diffuse abnormality. A head and foot twitch was noted, but they did not correlate with any seizure activity. MD BABAK Michel/wilver/aline , 03:46 PM , 03:49 PM
[2018-04-24] MEDS: QUEtiapine 25 MG Tablet PO SCH (20:28)
[2018-04-25] MEDS: Senna/Docusate Sodium 8.6/50 MG Tablet PO SCH ×2 (08:49→21:05)
[2018-04-25] MEDS: Folic Acid 1 MG Tablet PO SCH (08:49)
[2018-04-25] MEDS: LORazepam 0.5 MG Tablet PO SCH ×3 (08:49→17:41)
[2018-04-25] MEDS: Lisinopril 20 MG Tablet PO SCH (08:49)
--- NOTE | 2018-04-25 12:33 | P.TTN ---
- Patient Problems Problems: 1. Discharge planning 2. Medication compliance 3. Knowledge deficit 4. Lack of coping skills - Progress Toward Goals Provider Present: Dr. Amber Hughes (Taking patient to [place]; pt. is refusing meds.) Psychiatric Counselors Present: AYANNA Rhodes (Non-med compliant. Pt. will return home when stable) - Documentation Teaching Recipient: Patient
--- NOTE | 2018-04-25 16:31 | P.PNPSY ---
Subjective Chief Complaint: see below Remarks: Patient seen for follow-up, chart reviewed. Discussion with nursing staff reported that patient, continues with delusions of nodules on her skin no further seizure activity noted. Patient was found lying hospital bed noted to be calm and cooperative but later noted to be irritable. Patient states that she has been having nodules from "head to toe" stating that she had been seeing a chiropractor and that her to massage therapist at told her that she was having nodules as well. She states that she has his urination of wires under her skin throughout her body. She alluded to have a history of alcohol use and stated having drank on her birthday prior to her admission. Patient states that her has been visiting over the weekend, which she also agrees for patient to continue medications. Patient had accepted Seroquel 50 mg but was refusing today to continue with medications. Patient later agreed continue current treatment. Continue to monitor mood and behavior. Discharge planning in progress. Patient later agrees with treatment after having spoken with her but continues with poor insight. Review of Systems All other systems reviewed negative except as stated in HPI Mental Status Examination Appearance: Appropriate, Other Orientation: x4 Motor Activity: Normal gait Speech: Unremarkable Language: Adequate Fund of Knowledge: Inadequate Attention and Concentration: Adequate Memory: Unremarkable Mood: Angry, Irritable Affect: Irritable Thought Process & Associations: Circumstantial Thought Content: Preoccupations, Delusional Delusion Type: Bizarre, Other (Bizarre somatic delusions.) Suicidal Ideation: No Suicidal Plan: No Suicidal Intention: No Homicidal Ideation: No Homicidal Plan: No Homicidal Intention: No Insight: Poor Judgment: Poor Assessment and Plan - Assessment (1) Unspecified psychosis not due to a substance or known physiological condition Code(s): F29 - Unspecified psychosis not due to a substance or known physiological condition Status: Acute - Plan Plan: Patient continues with bizarre delusions of nodules and wires on her skin about her body. She continues with poor insight. Patient noted to be disheveled and preoccupied with this delusion. Patient initially refused to continue medications but later agreed and will continue to titrate quetiapine to 100 mg p.o. at bedtime. Continue rest medications. Hospitalist input appreciated. Continue to monitor mood and behavior. Discharge planning a progress. Justification for Continued Inpatient Stay: At risk of further decompensation at lower level care.
--- NOTE | 2018-04-25 16:38 | P.PNIM ---
Subjective Interval history: The patient was very fixated on nodules and lesions throughout her fascia. She wanted to know if these nodules would cause organ problems. She says she does not pick her skin. Discussed with nursing. Physical Exam Vital signs: Vital Signs 04/24/18 18:56 04/25/18 05:12 Temperature 98.6 F 97.3 F L Pulse Rate 72 79 Respiratory Rate 16 16 Blood Pressure 133/72 105/60 Pulse Oximetry 95 95 Intake & Output 04/24/18 04/25/18 04/25/18 18:59 06:59 18:59 Intake Total 1000 / 1000 340 / 340 Balance 1000 / 1000 340 / 340 Intake: Oral 1000 / 1000 240 / 240 Oral Supplement 100 / 100 Other: # Voids 3 2 Narrative: GENERAL: This is a well-nourished, well-developed patient, in no apparent distress. SKIN: Multiple excoriations on her extremities. Dry skin noted. CARDIOVASCULAR: Normal rate and regular rhythm without murmurs, gallops, or rubs. RESPIRATORY: Good respiratory efforts. Breath sounds equal and clear to auscultation bilaterally. GASTROINTESTINAL: Abdomen soft, non-tender, non-distended. Normal active bowel sounds MUSCULOSKELETAL: Extremities without cyanosis, or edema. NEURO: Alert & Oriented x4 to person, place, time, situation. Moves all ext x4. Mild tremors. Results - Labs CBC & Chem 7: 04/19/18 08:43 04/23/18 06:45 Microbiology 04/23/18 06:45 Blood - Peripheral Aerobic Blood Culture - Preliminary No growth in 2 days 04/23/18 06:45 Blood - Peripheral Anaerobic Blood Culture - Preliminary No growth in 2 days 04/23/18 06:40 Blood - Peripheral Aerobic Blood Culture - Preliminary No growth in 2 days 04/23/18 06:40 Blood - Peripheral Anaerobic Blood Culture - Preliminary No growth in 2 days Assessment and Plan - Plan Possible seizure Possible alcohol withdrawal seizure. No focal deficits on exam. EEG unremarkable. -[facility] protocol. -Ativan as needed. -Hold off on further workup or anticonvulsive at this point. If she were to have another seizure, would obtain imaging and consult neurology. - sz precautions. Alcohol dependence The patient was counseled. -Ct B12, folate, multivitamin. Hypertension Well controlled. -continue lisinopril. Psychiatric conditions The pt is fixated on nodules in her fascia throughout her body. -Managed by psychiatry. -PT eval. DVT Prophylaxis: ambulation
[2018-04-25] MEDS: QUEtiapine 100 MG Tablet PO SCH (21:05)
[2018-04-26] MEDS: Lisinopril 20 MG Tablet PO SCH (08:12)
[2018-04-26] MEDS: Folic Acid 1 MG Tablet PO SCH (08:12)
[2018-04-26] MEDS: Senna/Docusate Sodium 8.6/50 MG Tablet PO SCH ×2 (08:12→20:17)
[2018-04-26] MEDS: LORazepam 0.5 MG Tablet PO SCH ×3 (08:12→18:04)
--- NOTE | 2018-04-26 10:25 | P.PNIM ---
Subjective Interval history: The patient was feeling better today. She wanted to know if we can find out what kind of MRI she needed to get done at [facility] as an outpatient. 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 No acute complaints at this time. Physical Exam Vital signs: Vital Signs 04/25/18 17:49 04/26/18 06:00 Temperature 98.1 F 97.6 F Pulse Rate 74 71 Respiratory Rate 18 16 Blood Pressure 122/58 L 122/68 Pulse Oximetry 94 L 97 Intake & Output 04/25/18 04/26/18 04/26/18 18:59 06:59 18:59 Intake Total 340 / 340 480 / 480 Balance 340 / 340 480 / 480 Intake: Oral 240 / 240 480 / 480 Oral Supplement 100 / 100 Other: # Voids 1 Narrative: GENERAL: This is a well-nourished, well-developed patient, in no apparent distress. SKIN: Multiple excoriations on her extremities. Dry skin noted. CARDIOVASCULAR: Normal rate and regular rhythm without murmurs, gallops, or rubs. RESPIRATORY: Good respiratory efforts. Breath sounds equal and clear to auscultation bilaterally. GASTROINTESTINAL: Abdomen soft, non-tender, non-distended. Normal active bowel sounds MUSCULOSKELETAL: Extremities without cyanosis, or edema. NEURO: Alert & Oriented x4 to person, place, time, situation. Moves all ext x4. Mild tremors. Results - Labs CBC & Chem 7: 04/19/18 08:43 04/23/18 06:45 Microbiology 04/23/18 06:45 Blood - Peripheral Aerobic Blood Culture - Preliminary No growth in 2 days 04/23/18 06:45 Blood - Peripheral Anaerobic Blood Culture - Preliminary No growth in 2 days 04/23/18 06:40 Blood - Peripheral Aerobic Blood Culture - Preliminary No growth in 2 days 04/23/18 06:40 Blood - Peripheral Anaerobic Blood Culture - Preliminary No growth in 2 days Assessment and Plan - Plan Possible seizure Possible alcohol withdrawal seizure. No focal deficits on exam. EEG unremarkable. -CIWA protocol. -Ativan as needed. -Hold off on further workup or anticonvulsive at this point. If she were to have another seizure, would obtain imaging and consult neurology. -sz precautions. Alcohol dependence The patient was counseled. -Ct B12, folate, multivitamin. Hypertension Well controlled. -continue lisinopril. Psychiatric conditions The pt is fixated on nodules in her fascia throughout her body. -Managed by psychiatry. -PT eval. Pancreatitis Lipase normal here, no abdominal pain, but pt follows with GI and is scheduled for outpt MRI abdomen w/wo contrast. -outpt imaging as planned. DVT Prophylaxis: ambulation
[2018-04-26] MEDS: QUEtiapine 100 MG Tablet PO SCH (20:17)
--- NOTE | 2018-04-26 21:38 | P.PNPSY ---
Subjective Chief Complaint: see below Remarks: Patient seen for follow-up, chart reviewed. Discussion with nursing staff reported that patient compliant medications and reports sleeping better. Patient was found heavily on unit noted B, cooperative. Patient noted B's continued with some irritability but less so than before. Patient states that she is sleeping well, states that she is depressed due to being on medication and being here in the hospital. Patient stated that she would be smiling and happy if she was not here admitted to the inpatient unit. She reports that prior to her admission her mood has been generally happy, mentions having spoken to her recently and spent time speaking about 's alcohol use disorder as well as benzo diazepam use disorder which she states is having some relational discord due to his abuse of the substances. Patient reports tolerating medications well and continues to agree to taking medications as this was encouraged also by the hospitalist. Patient denies any perceptional services continues with delusions of having nodules and "unwinding" throughout her body but denies any suicidal homicidal ideation. Review of Systems All other systems reviewed negative except as stated in HPI Mental Status Examination Appearance: Appropriate, Other Orientation: x4 Motor Activity: Normal gait Speech: Unremarkable Language: Adequate Fund of Knowledge: Inadequate Attention and Concentration: Adequate Memory: Unremarkable Mood: Irritable Affect: Irritable Thought Process & Associations: Circumstantial Thought Content: Preoccupations, Delusional Delusion Type: Bizarre, Other (Bizarre somatic delusions.) Suicidal Ideation: No Suicidal Plan: No Suicidal Intention: No Homicidal Ideation: No Homicidal Plan: No Homicidal Intention: No Insight: Poor Judgment: Poor Assessment and Plan - Assessment (1) Unspecified psychosis not due to a substance or known physiological condition Code(s): F29 - Unspecified psychosis not due to a substance or known physiological condition Status: Acute - Plan Plan: Patient continues with bizarre delusion of having nodules throughout her body, 's concerns of patient with self-injurious behavior due to these delusion of these nodules under her skin but has not been noted to be self- injurious behavior since admission. We will continue current treatment. We will continue to monitor mood and behavior. Discharge planning a progress. Justification for Continued Inpatient Stay: At risk of further decompensation at lower level care.
[2018-04-27] MEDS: LORazepam 0.5 MG Tablet PO SCH ×3 (08:09→18:04)
[2018-04-27] MEDS: Folic Acid 1 MG Tablet PO SCH (08:09)
[2018-04-27] MEDS: Senna/Docusate Sodium 8.6/50 MG Tablet PO SCH ×2 (08:09→20:36)
[2018-04-27] MEDS: Lisinopril 20 MG Tablet PO SCH (08:09)
--- NOTE | 2018-04-27 14:04 | P.PNPSY ---
Subjective Chief Complaint: see below Remarks: Patient seen for follow-up, chart reviewed. Discussion with nursing staff reported that patient noted to be irritable this morning but did not apologize later to nursing staff, patient had visit with us with less evening which she was upset. Patient was found in day room noted to be occupied with possible but was able to engage in interview today with nurse. Patient states that she had a visit with her which went poorly less evening regarding marital discord. 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 She reports sleeping well, reports her mood has been "fine" but has concerns that her irritability this morning was due to medications the patient currently on a lower dose of this medication was encouraged to continue treatment for mood stabilization. Review of Systems All other systems reviewed negative except as stated in HPI Mental Status Examination Appearance: Appropriate, Other Orientation: x4 Motor Activity: Normal gait Speech: Unremarkable Language: Adequate Fund of Knowledge: Inadequate Attention and Concentration: Adequate Memory: Unremarkable Mood: Irritable (Lessening) Affect: Irritable (Lessening) Thought Process & Associations: Circumstantial Thought Content: Preoccupations, Delusional Delusion Type: Bizarre, Other (Bizarre somatic delusions.) Suicidal Ideation: No Suicidal Plan: No Suicidal Intention: No Homicidal Ideation: No Homicidal Plan: No Homicidal Intention: No Insight: Poor Judgment: Poor Assessment and Plan - Assessment (1) Unspecified psychosis not due to a substance or known physiological condition Code(s): F29 - Unspecified psychosis not due to a substance or known physiological condition Status: Acute - Plan Plan: Patient continues with delusions of "nodules and wires to my body" but less perseverative and less intense. Patient has not been noted to be focused on these delusions where she is hurting herself or any self-injurious behavior related to this delusion. Patient has some irritability likely related to her being in the inpatient unit. Patient will continue current treatment. We will continue to monitor mood and behavior. Patient will be with [facility] to decide where she will be discharged to. Patient likely for discharge tomorrow back to her residence. Justification for Continued Inpatient Stay: At risk of further decompensation at lower level care.
--- NOTE | 2018-04-27 14:17 | P.TTN ---
- Patient Problems Problems: 1. Discharge planning 2. Medication compliance 3. Knowledge deficit 4. Lack of coping skills - Progress Toward Goals Provider Present: Dr. Amber Hughes (Taking patient to [place] [facility]; pt. is refusing meds. April 27, 2018 Dr. Hughes is titrating medications, patient could discharge as early as tomorrow pending a good visit with her crystal during visitation.) Psychiatric Counselors Present: Ascencion Dailey Jr., [facility] (Patient is reporting she will return to her [facility] upon discharge tomorrow.), Evy Tobin [facility] (Non-med compliant. Pt. will return home when stable) Group Spec/RT/OT/ESPINAL Present: KYLIE Meadows (Patient attends select groups.) - Documentation Teaching Recipient: Patient
[2018-04-27] MEDS: QUEtiapine 100 MG Tablet PO SCH (20:36)
[2018-04-28] MEDS: LORazepam 0.5 MG Tablet PO SCH (08:47)
[2018-04-28] MEDS: Folic Acid 1 MG Tablet PO SCH (08:47)
[2018-04-28] MEDS: Senna/Docusate Sodium 8.6/50 MG Tablet PO SCH (08:48)
[2018-04-28] MEDS: Lisinopril 20 MG Tablet PO SCH (08:48)
--- NOTE | 2018-04-28 15:37 | P.DSPSY ---
Psychiatry Discharge Summary Inpatient Psychiatric care?: Yes Advance Directives: No Mental Health Advance Directive: No Health Care Proxy: No - Admission Admission Date: April 21, 2018 09:15 - Admission Diagnosis (1) Unspecified psychosis not due to a substance or known physiological condition Code(s): F29 - Unspecified psychosis not due to a substance or known physiological condition Brief History: Patient is a 68-year-old female without a stated psychiatric history. She was seen today with her . Patient was initially in psychiatric unit but then had a seizure and was transferred to the medical/psychiatric unit. Patient is disheveled and quite guarded and evasive during the interview. She required frequent prompting from myself and . Patient says she used to have alcohol dependence but quit drinking 4 years ago which has been confirmed. She had 3 drinks before admission yesterday. Today ciwa is 3. Patient also was taking Ativan 0.5 mg p.o. twice daily. Patient has a bizarre delusion where she feels that her body is being stretched apart and there are nodules throughout her body. She has been picking at these nodules excessively. Insight is quite poor concerning her recent behavior. She does deny suicidal or homicidal ideation intent or plan. Past psych: Patient denies inpatient or outpatient history. However, chart notes a history of Prozac. Past medical: See chart Past Famhx: Denies Past Social: History of alcohol dependence, she quit drinking 4 years ago. She is . Tobacco Use In Past 30 Days: No How Often Do You Have a Drink Containing Alcohol: 4 or more times a week Hospital Course: Patient is a 68-year-old woman, , domiciled with , no formal past psychiatric history, was brought in under [place] [facility] due to concerns of self-harm as patient has a bizarre delusion where she feels that her body is being stretched apart and there are nodules throughout her body. She has been picking at these nodules excessively which patient was admitted to the inpatient psychiatry unit for further evaluation and management. Patient initially during admission was noted to have possible seizure and was transferred to medical/psychiatry unit for further medical management and was cleared medically and continued on quetiapine and titrated up to 100 mg p.o. at bedtime for psychosis. Patient was noted to be irritable throughout admission stating she does not want to continue to be in the inpatient psychiatry unit but was not noted to have any self-injurious behavior while on the unit although noted to be irritable at times has been compliant with treatment and participatory in groups and activities and maintaining hygiene. Patient was admitted under voluntary admission and had been requesting psychiatric discharge at which recommendations for patient to continue inpatient treatment was recommended patient refused and was requesting discharge at this time and would leave AGAINST MEDICAL ADVICE. Patient no longer met criteria for involuntary hospitalization as patient was not threatening to self or others and was not noted to have any thoughts of actions or behaviors that were concerning for self-harm. Patient noted to be future oriented with plans to search for alternative treatment options and also offered outpatient mental health follow-up patient declined. Counselor has arranged discharge plan with who had no safety concerns of patient being discharged and aware the patient will be leaving AGAINST MEDICAL ADVICE. On the day of discharge: Patient seen and examined; chart reviewed. Case discussed with nurse and counselor. No behavioral issues overnight. On my examination today, the patient denies any suicidal homicidal ideation, intent or plan on direct questioning and contracts for safety. Patient denies any perceptional disturbances and no delusional material verbalized today. Patient denies any side effects from medication and has understanding of medication regimen and education. No physical complaints. Suicide and violence risk assessment on day of discharge both suggest lower imminent risk, and the patient's level of function is adequate for plan level of outpatient care. Patient has maximized benefit from this inpatient psychiatric hospital stay and will be discharged with discharge plan as arranged by counselor. Patient advised to return to psychiatric emergency room for any concerning psychiatric symptoms. Patient agrees with plan. - Discharge Discharge Date: 04/28/18 - Discharge Diagnosis (1) Unspecified psychosis not due to a substance or known physiological condition Code(s): F29 - Unspecified psychosis not due to a substance or known physiological condition Status: Acute Discharge Disposition: Home - Discharge Instructions Discharge Diet: Heart Healthy Diet Activities You Can Perform: Weight Bearing As Tolerat - Discharge Time > 30 minutes Mental Status Examination Appearance: Appropriate, Other Orientation: x4 Motor Activity: Normal gait Speech: Unremarkable Language: Adequate Fund of Knowledge: Inadequate Attention and Concentration: Adequate Memory: Unremarkable Mood: Appropriate Affect: Appropriate Thought Process & Associations: Intact, Goal directed, Linear Thought Content: Delusional (Minimal) Delusion Type: Bizarre, Other (Bizarre somatic delusions.) Suicidal Ideation: No Suicidal Plan: No Suicidal Intention: No Homicidal Ideation: No Homicidal Plan: No Homicidal Intention: No Insight: Poor Judgment: Poor Discharge/Advance Care Plan - Results Vital Signs: Last Vital Signs Temp 97.6 F 04/28/18 05:53 Pulse 66 04/28/18 05:53 Resp 16 04/28/18 05:53 BP 142/84 H 04/28/18 05:53 Pulse Ox 97 04/28/18 05:53 Lab Results: Laboratory Results Hemoglobin A1c 5.2 % (4.3-6.0) 04/23/18 06:45 Triglycerides 64 mg/dL (42-150) 04/23/18 06:45 Cholesterol 191 mg/dL (120-200) 04/23/18 06:45 LDL Cholesterol, Calc 92 mg/dL (0-99) 04/23/18 06:45 HDL Cholesterol 86.3 mg/dL (40.0-60.0) H 04/23/18 06:45 TSH 2.350 uIU/mL (0.358-3.740) 04/19/18 08:43 Urine Culture Comments Culture not ind 04/19/18 08:40 Summary of Procedures: none Imaging: ITS Impressions Chest X-Ray 04/19/18 08:37 CONCLUSION: No acute cardiopulmonary disease. Pending Results: None - Medications Number of antipsychotic medications at discharge: 1 - Discharge Care Plan Goals to Promote Your Health: * To prevent worsening of your condition and complications * To maintain your health at the optimal level Directions to Meet Your Goals: Take your medications as prescribed Follow your dietary instruction Follow activity as directed Keep your appointments as scheduled Take your immunizations and boosters as scheduled If your symptoms worsen call your PCP, if no PCP go to Urgent Care Center or Emergency Room For / questions related to your inpatient stay or results of tests pending at discharge, please contact Dr. Onofre Hughes MD at Smoking is Dangerous to Your Health. Avoid second hand smoking
== END 2018-04-28 14:10 | disposition left against medical advice (07) ==
LOC: NEPC 07:41 → NEDA 04-21 09:15 → H260 04-21 11:20 → H4EA 04-21 17:39 → HCPC 04-25 08:57 → H4EA 04-25 09:00 → H260 04-26 15:15
PROVIDERS: ADMIT Student in an Organized Health Care Education/Training Program; ATTEND Student in an Organized Health Care Education/Training Program